=== PATIENT | male | born 1965 | race Caucasian/White ===

== ENCOUNTER 2024-12-05 11:54 | Emergency (ER) | payer OTHER, SELFPAY ==
--- OUTSIDE RECORDS SUMMARY | 2024-12-05 11:57 | XMS_ITS | Clinical Summary ---
Author Organization [facility] Address [address] [place] [address] Care Team Providers Care Supervisor [employer] Name Role Phone Unavailable Primary Care Provider Unavailabl e Social History Tobacco Use Types Packs/Day Years Used Date Smoking Tobacco: Never Assessed Sex and Gender Information Value Date Recorded Sex Assigned at Not on file Legal Sex Male 12:43 AM PST Gender Identity Not on file Sexual Orientation Not on file Plan of Treatment Health Maintenance Due Date Last Done Comments Dental Prophylaxis 1965 Meningococcal B Vaccine Aged Out No l onger eligible based on patient's age to complete this topic Insurance [facility] PPO
--- OUTSIDE RECORDS SUMMARY | 2024-12-05 11:57 | XMS_ITS | Encounter Summary ---
Author Organization [facility] [place] [address] [place] [address] Care Team Providers Care Home Health Speech Therapist Name Role Phone Unavailable Primary Care Provider Unavailabl e Prior Encounters Date Type Department Care Team Description 08/11/2019 Converted 13x Documents [facility] [address] [place] [id number] <No scans attached> 08/11/2019 Converted 13x Documents [facility] [address] [place] [address] <No scans attached> Plan of Treatment Not on file Visit Diagnoses Not on file Insurance [facility]
[2024-12-05 12:06] VITALS: BP 142/74; PULSE 93; RESP 14; TEMP 36.6; O2SAT 99
--- OUTSIDE RECORDS SUMMARY | 2024-12-05 12:06 | XMS_ITS | Data Portability ---
Author Organization [facility] Address [address] [place] [id number] Assessment No assessment recorded. Plan of Treatment Reminders Order Date Submit Date Provider Last Modified By Organization Details Last Modified Time Details Appointments None recorded. Lab CBC w/ auto diff 2022 [facility] (3 day [facility]), [address] , [place], [address], 10:29:50 CMP, serum or plasma 2022 023 [facility] [address] , [place], [address], 10:29:54 lipid panel, blood 2022 023 [facility] [address] , [place], [address], 10:29:52 noninvasi ve colorecta l cancer DNA + occult blood screening , QL, stool 2022 023 [email or web address] (Cologuard Orders Only), [address], [address], [place], [address], 11:03:11 Referral None recorded. Procedures None recorded. Surgeries None recorded. Imaging LDCT, chest, for lung cancer screening 2022 023 [email or web address] Not available 11:03:07 Medication Orders None recorded. Patient TargetsNo targets recorded. Patient Instructions Encounter Date Encounter Id Patient Instructions Last Modified By Organization Details Last Modified Time 05/07/2023 [id number] Quitting Tobacco: Care Instructions [email or web address] Not available 05/07/2023 12:48:51 Advised to quit smoking. Need to come back for blood work fasting CBC CMP lipid UA complete [email or web address] Not available 05/07/2023 12:43:50 Reason for Referral None Reported. Results Created Date Observation Date Name Description Value Unit Range Abnormal Flag Note LastModifiedBy Organization Detail LastModifiedTime 05/06/2005/06/2024 COLOG UARD cologuard result Cancel led - Order d not applic able Not Available [facility] (Cologuard Orders Only) [address], [place], [address], 05/06/2024 07:51:55 05/08/2005/10/2023 CBC AUTO DIFF WBC 10.4 x_10 3.7-10 .1 abnormal Not Available [facility] ([facility]) [address] , [place], [address], 05/10/2023 10:29:50 05/08/2005/10/2023 CBC AUTO DIFF neutrophils % 59.2 % 43.7-7 2.5 normal Not Available [facility] ([facility]) [address] , [place], [address], 05/10/2023 10:29:50 05/08/2005/10/2023 CBC AUTO DIFF lymphocytes % 31.9 % 18.5-4 3.7 normal Not Available [facility] ([facility]) [address] , [place], [address], 05/10/2023 10:29:50 05/08/2005/10/2023 CBC AUTO DIFF monocytes % 5.4 % 4.1-11 .7 normal Not Available [facility] ([facility]) [address] , [place], [address], 05/10/2023 10:29:50 05/08/2005/10/2023 CBC AUTO DIFF eosinophils % 3.3 % 0.0-5. 2 normal Not Available [facility] [address] [facility], [place], [address], 05/10/2023 10:29:50 05/08/20 23 05/10/2023 CBC AUTO DIFF basophils % 0.2 % 0.0-1. 0 normal Not Available [facility] ([facility] [address] [place] [address], [place], [address], 05/10/2023 10:29:50 05/08/20 23 05/10/2023 CBC AUTO DIFF neutrophils # 6.2 x_10 1.6-7. 3 normal Not Available [facility] ([facility] [address] [place] [address], [place], [address], 05/10/2023 10:29:50 05/08/2005/10/2023 CBC AUTO DIFF lymphocytes # 3.3 x_10 0.68-4 .41 normal Not Available [facility] ([facility] [address] [place] [address], [place], [address], 05/10/2023 10:29:50 05/08/2005/10/2023 CBC AUTO DIFF monocytes # 0.6 x_10 0.15-1 .18 normal Not Available [facility] ([facility] [address] [place] [address], [place], [address], 05/10/2023 10:29:50 05/08/20 23 05/10/2023 CBC AUTO DIFF eosinophils # 0.3 x_10 0.0-0. 52 normal Not Available [facility] ([facility] [address] [place] [address], [place], [address], 05/10/2023 10:29:50 05/08/20 23 05/10/2023 CBC AUTO DIFF basophils # 0.0 x_10 0.0-0. 1 normal Not Available [facility] ([facility] [address] [place] [address], [place], [address], 05/10/2023 10:29:50 05/08/2005/10/2023 CBC AUTO DIFF RBC 5.37 x_10 4.4-5. 6 normal Not Available [facility] ([facility]) [address] , [place], [address], 05/10/2023 10:29:50 05/08/2005/10/2023 CBC AUTO DIFF hemoglobin 17.0 g/dL 13.0-1 7.8 normal Not Available [facility] ([facility]) [address] , [place], [address], 05/10/2023 10:29:50 05/08/2005/10/2023 CBC AUTO DIFF hematocrit 52.0 % 39-51 abnormal Not Available [facility] ([facility]) [address] , [place], [address], 05/10/2023 10:29:50 05/08/2005/10/2023 CBC AUTO DIFF MCV 96.9 fL 82-100 normal Not Available [facility] ([facility]) [address] , [place], [address], 05/10/2023 10:29:50 05/08/2005/10/2023 CBC AUTO DIFF MCH 31.7 pg 27.0-3 4.0 normal Not Available [facility] ([facility]) [address] , [place], [address], 05/10/2023 10:29:50 05/08/2005/10/2023 CBC AUTO DIFF MCHC 32.7 g/dL 30.0-3 7.0 normal Not Available [facility] ([facility]) [address] , [place], [address], 05/10/2023 10:29:50 05/08/2005/10/2023 CBC AUTO DIFF RDW 14.2 % 12.7-1 7.1 normal Not Available [facility] ([facility]) [address] , [place], [address], 05/10/2023 10:29:50 05/08/20 23 05/10/2023 CBC AUTO DIFF plt 274 x10 150-38 0 normal Not Available [facility] ([facility]) [address] , [place], [address], 05/10/2023 10:29:50 05/08/2005/10/2023 CBC AUTO DIFF MPV 8.5 fL 7.0-10 .2 normal RBC: Normo chrom ic Normo cytic WBC: Suzanna l PLT: Suzanna l Not Available [facility] ([facility]) [address] , [place], [address], 05/10/2023 10:29:50 05/08/2005/10/2023 LIPID PANEL cholesterol 219 mg/dL 0-200 abnormal Not Available [facility] ([facility]) [address] , [place], [address], 05/10/2023 10:29:52 05/08/2005/10/2023 LIPID PANEL triglyceride s 202 mg/dL 0-150 abnormal Not Available [facility] ([facility]) [address] , [place], [address], 05/10/2023 10:29:52 05/08/2005/10/2023 LIPID PANEL HDL 38 mg/dL > 45 normal Not Available [facility] ([facility]) [address] , [place], [address], 05/10/2023 10:29:52 05/08/2005/10/2023 LIPID PANEL LDL 143 mg/dL 0-100 abnormal Not Available [facility] ([facility]) [address] , [place], [address], 05/10/2023 10:29:52 05/08/2005/10/2023 LIPID PANEL VLDL 40 mg/dL 2-30 abnormal Not Available [facility] ([facility]) [address] , [place], [address], 05/10/2023 10:29:52 05/08/2005/10/2023 LIPID PANEL cholesterol/ HDL ratio 5.8 3.7-6. 7 normal Not Available [facility] ([facility]) [address] [facility], [place], [address], 05/10/2023 10:29:52 05/08/2005/10/2023 COMPR EHENS SHAY METAB OLIC PANEL , CMP alkaline phosphatase 90 U/L 4-129 normal Not Available [facility] [address] [facility], [place], [address], 05/10/2023 10:29:54 05/08/2005/10/2023 COMPR EHENS SHAY METAB OLIC PANEL , CMP alanine transaminase (ALT/SGPT) 31 U/L 0-41 normal Not Available [facility] ([facility]) [address] , [place], [address], 05/10/2023 10:29:54 05/08/2005/10/2023 COMPR EHENS SHAY METAB OLIC PANEL , CMP aspartate transaminase (AST/SGOT) 26 U/L 0-40 normal Not Available [facility] ([facility]) [address] [facility], [place], [address], 05/10/2023 10:29:54 05/08/2005/10/2023 COMPR EHENS SHAY METAB OLIC PANEL , CMP albumin 4.3 g/dL 3.5-5. 2 normal Not Available [facility] ([facility]) [address] [facility], [place], [address], 05/10/2023 10:29:54 05/08/2005/10/2023 COMPR EHENS SHAY METAB OLIC PANEL , CMP globulin 2.6 g/dL 2.0-3. 5 normal Not Available [facility] ([facility]) [address] , [place], [address], 05/10/2023 10:29:54 05/08/2005/10/2023 COMPR EHENS SHYA METAB OLIC PANEL , CMP bilirubin total 0.6 mg/dL 0-1.2 normal Not Available [facility] ([facility]) [address] , [place], [address], 05/10/2023 10:29:54 05/08/2005/10/2023 COMPR EHENS SHAY METAB OLIC PANEL , CMP calcium (total) 10.1 mg/dL 8.6-10 .4 normal Not Available [facility] ([facility]) [address] , [place], [address], 05/10/2023 10:29:54 05/08/2005/10/2023 COMPR EHENS SHAY METAB OLIC PANEL , CMP bicarbonate 29 mEq/L 22-34 normal Not Available [facility] ([facility]) [address] , [place], [address], 05/10/2023 10:29:54 05/08/2005/10/2023 COMPR EHENS SHAY METAB OLIC PANEL , CMP creatinine 0.9 mg/dL 0.7-1. 2 normal Not Available [facility] ([facility]) [address] , [place], [address], 05/10/2023 10:29:54 05/08/2005/10/2023 COMPR EHENS SHAY METAB OLIC PANEL , CMP blood glucose 87 mg/dL 70-115 normal Not Available [facility] ([facility]) [address] , [place], [address], 05/10/2023 10:29:54 05/08/2005/10/2023 COMPR EHENS SHAY METAB OLIC PANEL , CMP total protein 6.9 g/dL 6.6-8. 7 normal Not Available [facility] ([facility]) [address] , [place], [address], 05/10/2023 10:29:54 05/08/2005/10/2023 COMPR EHENS SHAY METAB OLIC PANEL , CMP BUN 13 mg/dL 6.0-20 normal Not Available [facility] ([facility]) [address] [facility], [place], [address], 05/10/2023 10:29:54 05/08/2005/10/2023 COMPR EHENS SHAY METAB OLIC PANEL , CMP sodium 137 mEq/L 135-14 5 normal Not Available [facility] ([facility]) [address] [facility], [place], [address], 05/10/2023 10:29:54 05/08/2005/10/2023 COMPR EHENS SHAY METAB OLIC PANEL , CMP potassium 4.5 mEq/L 3.5-5. 1 normal Not Available [facility] ([facility]) [address] [place] [address], [place], [address], 05/10/2023 10:29:54 05/08/2005/10/2023 COMPR EHENS SHAY METAB OLIC PANEL , CMP chloride 104 mEq/L 98-107 normal Not Available [facility] ([facility]) [address] [facility], [place], [address], 05/10/2023 10:29:54 05/08/2005/10/2023 COMPR EHENS SHAY METAB OLIC PANEL , CMP eGFR 92 mL/mi n/1.7 3m2 > 59 normal Not Available [facility] ([facility]) [address] [facility], [place], [address], 05/10/2023 10:29:54 05/08/2005/10/2023 COMPR EHENS SHAY METAB OLIC PANEL , CMP BUN/creatini ne ratio 14.4 6-25 normal Not Available [facility] ([facility]) [address] [facility], [place], [address], 05/10/2023 10:29:54 05/08/2005/10/2023 COMPR EHENS SHAY METAB OLIC PANEL , CMP A/G ratio 1.6 0.8 -2.0 normal Not Available [facility] ([facility]) [address] , [place], [address], 05/10/2023 10:29:54 05/08/20 23 05/10/2023 COMPR EHENS SHAY METAB OLIC PANEL , CMP anion gap 8 6-[address] [facility] ([facility] [address], [place], [address], 05/10/2023 10:29:54 Result Notes None recorded. Problems No Known Problems Medical Equipment None Reported. Allergies No known drug allergies Medications Not known to be on any medication Vitals Date Recorded Heart rate Respiratory rate Body temperature Body weight Body mass index (BMI) Body height Oxygen saturation Oxygen saturation in Arterial blood by Pulse oximetry Systolic blood pressure Diastolic blood pressure Provider Name and Address Organization Details Last Updated DateTime 95 /min 20 /min 97.6 [degF] 36250.6 2 g 30.6 kg/m2 175.26 cm 97 % 97 % 134 mm[Hg] 80 mm[Hg] Savannah Mata [facility] 12:02:16 Social History Question Answer Notes LastModified by Organizat ion Details LastModified Time Tobacco Smoking Status Current Every Day Smoker Savannah Mata [facility] 05/07/2023 11:50:42 Do You Have An Advance Directive? No Information not available 05/07/2023 How Many Years Have You Consumed Alcohol? 50 Information not available 05/07/2023 Are You Blind Or Do You Have Difficulty Seeing? No Information not available 05/07/2023 Is Blood Transfusion Acceptable In An Emergency? No Information not available 05/07/2023 What Is Your Level Of Caffeine Consumption? Heavy Information not available 05/07/2023 Are You Deaf Or Do You Have Serious Difficulty Hearing? No Information not available 05/07/2023 Have You Directly Handled Bats, Rodents, Or Primates From Ebola Endemic Areas? No Information not available 05/07/2023 Have You Had Household Contact With An Ebola Virus Disease Patient? No Information not available 05/07/2023 What Was The Date Of Your Most Recent Tobacco Screening? 05/07/2023 [email or web address] Information not available 05/07/2023 Are There Any Occupational Health Risks Where You Work? No Information not available 05/07/2023 What Is Your Relationship Status? Information not available 05/07/2023 Are You Sexually Active? Yes Information not available 05/07/2023 Do You Have Any Siblings? Yes Information not available 05/07/2023 At What Age Did You Start Smoking Tobacco? 8 Information not available 05/07/2023 Are You Passively Exposed To Smoke? Yes Information no t available 05/07/2023 How Much Tobacco Do You Smoke? 1 PPD Information not available 05/07/2023 How Many Years Have You Smoked Tobacco? 50 Information not available 05/07/2023 Sex: Unknown Functional Status Question Answer Note LastModified by Organization D etails LastModified Time What is your level of alcohol consumption? Moderate Information not available 05/07/2023 Are you currently employed? Yes Information not available 05/07/2023 Are you able to care for yourself? Yes Information not available 05/07/2023 Mental Status None recorded. Family History Relationship Description Onset Age of this Age Resolved Age Notes LastModified by Organization Details LastModified Time Father No current problems or disability [email or web address] Not available 04/22 12:02:30 Mother No current problems or disability [email or web address] Not available 04/22 12:02:30 Medical History Condition Response Coronary Artery Disease N Other N Gout N Blood Diseases N Kidney Stones N Hyperthyroidism N Blood Transfusion N Breast Cancer N Lung Disease N Hypothyroidism N Depression N COPD N Defects or Inherited Disease N Developmental or Behavioral Disorders N Breast Problem N Difficulty Swallowing N Anesthesia Complications N Anxiety Disorder N Meniere's disease N Muscle, Joint, or Bone Problems N Obesity N Vision or Eye Problems N Arthritis N Infertility N Polyps N Mental Disorder N Cancer N Varicosities N Stroke N Endometriosis N Bladder or Kidney Problems N High Cholesterol N Liver Disease N Headaches N Fibromyalgia N Kidney Disease N Allergies/Hayfever N Heart Problems N Ear or Hearing Problems N Hospitalizations N Thyroid Problems N GI Problems N ADD/ADHD N Eating Disorder N Skin Problems N Anemia N MRSA exposure N Constipation N Mental Illness N Diabetes N Ovarian Cancer N Bedwetting N Seizures/Epilepsy N Tuberculosis N AIDS/HIV N Congestive Heart Failure (CHF) N Eczema N Abuse/Domestic Violence N Diverticulitis N Asthma N Reflux/GERD N Hepatitis N Heart Disease N Pulmonary Embolism N Chronic Ear Infections N Pre-Eclampsia N Hypertension N Chicken Pox N Autism Spectrum Disorder (ASD) N Osteoporosis N Thrombophilias N Past Encounters Encounter ID Performer Location Encounter Start Date Encounter Closed Date Diagnosis/Indication Diagnosis SNOMED-CT Code Diagnosis ICD10 Code Diagnosis Note [id number] [facility] Main [facility] [address] [facility] [address] [place] [address] 05/07/2023 11:30:06 07/29/2023 21:39:38 Adult health examination 150647798 Z00.00 Screening for malignant neoplasm of colon 202402973 Z12.11 Screening for malignant neoplasm of respiratory tract 702508926 Z12.2 Tobacco user 072588460 Z 72.0 [id number] [facility] Main Office [address] [facility] [address] [place] [address] 05/08/2023 18:27:22 07/30/2023 22:25:06 Adult health examination 278554295 Z00.00 Health Concerns Section Related Observation LastModified by Organization Detai ls LastModified Time None Recorded Concern Status LastModified by Organization Details LastModified Time None Recorded Advance Directives Directive N: Payers Encounter Date Sequence Insurance Name Policy Number Policy Rodriguez Covered Member ID Rodriguez Member ID Guarantor Name 05/07/2023 1 [place]ATH[place] BRADLEY [id number] Noah Bolton [id number] Noah Bolton 05/08/2023 1 [place]BS [id number] Noah Bolton [id number] Noah Bolton Notes Date Note Type Note Provider Name and Address Organization Details Recorded Time 05/07/2023 text/html Patient has come to establish care. He overall feels fine and has no complaints. He denies any problems. He is a smoker. He works on [employer] [address] [facility] [address], [place], [address], [place] [facility] 07/29/2023 20:59:53
== END 2024-12-05 12:37 | disposition home or self-care (01) ==
LOC: EXPBETH 12:04
DX: L03.213 Periorbital cellulitis (principal)
CPT/HCPCS: 99213; G0463